=== PATIENT | male | born 1970 | race Caucasian/White ===

== ENCOUNTER 2019-08-27 05:45 | Inpatient (IN) | payer OTHER ==
[2019-08-20 12:36] LABS: BASOPHILS % (AUTO) 0.4 % (0.0-2.0); EOSINOPHILS % (AUTO) 1.4 % (1.0-6.0); HEMATOCRIT 42.3 % (41-53); HEMOGLOBIN 14.4 g/dL (13.5-17.5); LYMPHOCYTES # (AUTO) 2.5 K/uL (1.0-4.8); LYMPHOCYTES % (AUTO) 33.6 % (22.0-44.0); MEAN CORPUSCULAR HEMOGLOBIN 29.5 pg (26.0-34.0); MEAN CORPUSCULAR HGB CONC 34.1 G/dL (31.0-37.0); MEAN CORPUSCULAR VOLUME 87 fL (80-100); MONOCYTES # (AUTO) 0.5 K/uL (0.1-1.0); MONOCYTES % (AUTO) 6.4 % (2.0-9.0); NEUTROPHILS # (AUTO) 4.4 K/uL (1.8-7.7); NEUTROPHILS % (AUTO) 58.2 % (40.0-70.0); PLATELET COUNT (AUTO) 248 K/uL (150-450); RED BLOOD CELL COUNT(AUTO) 4.89 MIL/uL (4.50-5.90)
[2019-08-20 12:49] LABS: PROTHROMBIN TIME 10.3 SEC (9.4-11.6)
[2019-08-20 12:51] LABS: ANION GAP 8 mmol/L (8-16); CALCIUM, TOTAL 9.2 mg/dL (8.8-10.5); CARBON DIOXIDE 29 mmol/L (22-29); CHLORIDE 103 mmol/L (98-107); CREATININE 1.18 mg/dL (0.60-1.30); GLOMERULAR FILTR. RATE CALC > 60 mL/min (>60); GLUCOSE,RANDOM 99 mg/dL (70-110); POTASSIUM 4.6 mmol/L (3.5-5.1); SODIUM SERUM 140 mmol/L (136-145); UREA NITROGEN, BLOOD 20 mg/dL (7-18)
[2019-08-20 13:05] LABS: ALANINE AMINOTRANSFERASE 81 U/L (12-78); ALBUMIN 4.3 g/dL (3.4-5.0); ALKALINE PHOSPHATASE 82 U/L (46-116); ASPARTATE AMINOTRANSFERASE 42 U/L (15-37); BILIRUBIN,TOTAL 0.5 mg/dL (0.1-1.0); TOTAL PROTEIN, SERUM 7.9 g/dL (6.4-8.2)
[~2019-08-27] VITALS: Ht 172.7 cm; Wt 94.5 kg
[~2019-08-27 05:45] MED LIST: ATOR40TA28 PO; IBUP-2070 PO; LEVO150 PO; RINGERS SOLUTION,LACTATED 1,000 ML IV ONE; SULF500T60 PO
[2019-08-27] MEDS ORDERED: RINGERS SOLUTION,LACTATED 1,000 ML IV ONE (06:00)
[2019-08-27] MEDS ORDERED: TRANEXAMIC ACID 1,000 MG in DEXTROSE 5%-WATER 50 ML IV ONE (06:30)
[2019-08-27] MEDS ORDERED: BUPIVACAINE LIPOSOME/PF 1.3%-13.3MG/ML SUSPENSION 20 ML VIAL INJ ONE (06:30)
[2019-08-27] MEDS ORDERED: BUPIVACAINE HCL/PF 0.5% 30 ML VIAL ONE (06:36)
[2019-08-27] MEDS ORDERED: POVIDONE-IODINE 30 GM OINTMENT TP ONE (06:36)
[2019-08-27] MEDS ORDERED: SODIUM CHLORIDE 0.9% 100 ML ONE (06:37)
[2019-08-27] MEDS ORDERED: SODIUM CL IRRIG SOLN BAG 3,000 ML IRRIG ONE (06:37)
[2019-08-27] MEDS ORDERED: BACITRACIN 50,000 UNITS/VIAL ONE (06:38)
[2019-08-27] MEDS ORDERED: HYDROmorphone 2 MG/ML SYRINGE IVP PRN ×2 (06:45→08:15)
[2019-08-27] MEDS ORDERED: CYCLOBENZAPRINE HCL 10 MG TABLET PO PRN (06:45)
[2019-08-27] MEDS ORDERED: CELECOXIB 200 MG CAPSULE PO ONE (06:45)
[2019-08-27] MEDS ORDERED: ONDANSETRON HCL 4 MG/2 ML VIAL IVP PRN ×3 (06:45→21:15)
[2019-08-27] MEDS ORDERED: OxyCODONE HCL 5 MG IR TABLET PO PRN (06:45)
[2019-08-27] MEDS ORDERED: ACETAMINOPHEN 1000 MG/ISO-OSM 100 ML IV ONE (06:45)
[2019-08-27] MEDS ORDERED: ZOLPIDEM TARTRATE 5 MG TABLET PO PRN ×2 (06:45→21:15)
[2019-08-27] MEDS ORDERED: CELECOXIB 200 MG CAPSULE ONE (07:15)
[2019-08-27] MEDS: ACETAMINOPHEN 1000 MG/ISO-OSM 100 ML IV SCH ×4 (07:18→23:48)
[2019-08-27] MEDS ORDERED: FentaNYL CITRATE-PF 100 MCG/2 ML VIAL IVP PRN (08:15)
[2019-08-27] MEDS ORDERED: MEPERIDINE-PF 25 MG/ML VIAL IVP PRN (08:15)
[2019-08-27] MEDS ORDERED: DEXTROSE 5%-LACTATED RINGERS 1,000 ML IV SCH (09:36)
[2019-08-27] MEDS ORDERED: BACITRACIN 28.4 GM OINTMENT TP PRN (09:45)
[2019-08-27] MEDS ORDERED: BISACODYL 10 MG RECTAL RECTAL SUPPOSITORY PR PRN ×2 (09:45→21:15)
[2019-08-27] MEDS ORDERED: DiphenhydrAMINE HCL 50 MG/ML VIAL IVP PRN (09:45)
[2019-08-27] MEDS ORDERED: MAG HYDROX/AL HYDROX/SIMETH 30 ML SUSP UDCUP PO PRN (09:45)
[2019-08-27] MEDS ORDERED: ZOLPIDEM TARTRATE 10 MG TABLET PO PRN (09:45)
[2019-08-27] MEDS ORDERED: BENZOCAINE/MENTHOL LOZENGE PO PRN (09:45)
[2019-08-27 11:09] VITALS: BP 119/85
[2019-08-27] MEDS ORDERED: SODIUM CHLORIDE 0.9% 250 ML IV ONE (11:26)
[2019-08-27 15:42] VITALS: BP 102/62
[2019-08-27] MEDS: CeFAZolin 1 GM/DEXTROSE 50 ML IV SCH ×2 (17:26→23:48)
[2019-08-27] MEDS: OXYGEN THERAPY IH SCH (20:00)
[2019-08-27] MEDS: CELECOXIB 200 MG CAPSULE PO SCH (20:19)
[2019-08-27] MEDS: FAMOTIDINE 20 MG TABLET PO SCH (20:20)
[2019-08-27 20:29] VITALS: BP 111/57
[2019-08-27] MEDS ORDERED: DOCUSATE SODIUM 100 MG CAPSULE PO SCH (21:00)
[2019-08-27] MEDS ORDERED: ALBUTEROL SULFATE 2.5 MG/0.5 ML NEB SOLUTION NEB PRN (21:15)
[2019-08-27] MEDS ORDERED: HYDROCODONE/ACETAMINOPHEN 5-325 MG TABLET PO PRN (21:15)
[2019-08-27] MEDS ORDERED: MAGNESIUM HYDROXIDE SUSPENSION 30 ML UDCUP PO PRN (21:15)
[2019-08-27] MEDS ORDERED: MORPHINE SULFATE 2 MG/ML SYRINGE IVP PRN (21:15)
[2019-08-27] MEDS ORDERED: ACETAMINOPHEN 325 MG TABLET PO PRN (21:15)
[2019-08-27] MEDS ORDERED: IPRATROPIUM BROMIDE 0.5 MG/2.5 ML NEB SOLUTION NEB PRN (21:15)
[2019-08-28 00:44] VITALS: BP 112/64
[2019-08-28] MEDS: LEVOTHYROXINE SODIUM 150 MCG TABLET PO SCH (04:55)
[2019-08-28 04:56] VITALS: BP 120/64
[2019-08-28] MEDS ORDERED: HYDROmorphone 2 MG/ML SYRINGE IVP ONE (05:03)
[2019-08-28] MEDS ORDERED: MIDAZOLAM HCL 2 MG/2 ML VIAL IVP ONE (05:03)
[2019-08-28] MEDS ORDERED: SUCCINYLCHOLINE CHLORIDE 20 MG/ML 10 ML VIAL IVP ONE (05:03)
[2019-08-28] MEDS ORDERED: ONDANSETRON HCL 4 MG/2 ML VIAL IVP ONE (05:03)
[2019-08-28] MEDS ORDERED: 0.9% SODIUM CHLORIDE 10 ML VIAL IVP ONE (05:03)
[2019-08-28] MEDS ORDERED: FentaNYL CITRATE-PF 250 MCG/5 ML VIAL IVP ONE (05:03)
[2019-08-28] MEDS ORDERED: PROPOFOL 1% 20 ML VIAL IVP ONE (05:03)
[2019-08-28] MEDS ORDERED: ROCURONIUM BROMIDE 10 MG/ML 5 ML VIAL IVP ONE (05:03)
[2019-08-28] MEDS ORDERED: LIDOCAINE/PF 2% 5 ML VIAL IM ONE (05:03)
[2019-08-28 07:41] VITALS: BP 109/66
[2019-08-28] MEDS: OXYGEN THERAPY IH SCH ×2 (08:00→20:00)
[2019-08-28] MEDS: ATORVASTATIN CALCIUM 40 MG TABLET PO SCH (08:19)
[2019-08-28] MEDS: FAMOTIDINE 20 MG TABLET PO SCH ×2 (08:19→19:49)
[2019-08-28] MEDS: DOCUSATE SODIUM 100 MG CAPSULE PO SCH ×2 (08:19→19:48)
[2019-08-28] MEDS: CELECOXIB 200 MG CAPSULE PO SCH ×2 (08:19→19:49)
[2019-08-28] MEDS: ACETAMINOPHEN 1000 MG/ISO-OSM 100 ML IV SCH (08:22)
[2019-08-28] MEDS ORDERED: RIVAROXABAN 10 MG TABLET PO SCH (09:00)
[2019-08-28 09:31] LABS: BASOPHILS % (AUTO) 0.2 % (0.0-2.0); EOSINOPHILS % (AUTO) 0.1 % (1.0-6.0); HEMATOCRIT 33.2 % (41-53); HEMOGLOBIN 11.2 g/dL (13.5-17.5); LYMPHOCYTES # (AUTO) 1.8 K/uL (1.0-4.8); LYMPHOCYTES % (AUTO) 19.9 % (22.0-44.0); MEAN CORPUSCULAR HEMOGLOBIN 29.4 pg (26.0-34.0); MEAN CORPUSCULAR HGB CONC 33.6 G/dL (31.0-37.0); MEAN CORPUSCULAR VOLUME 88 fL (80-100); MONOCYTES # (AUTO) 0.7 K/uL (0.1-1.0); MONOCYTES % (AUTO) 7.4 % (2.0-9.0); NEUTROPHILS # (AUTO) 6.4 K/uL (1.8-7.7); NEUTROPHILS % (AUTO) 72.4 % (40.0-70.0); PLATELET COUNT (AUTO) 240 K/uL (150-450); RED CELL DISTRIBUTION WIDTH 13.5 % (11.5-14.5)
[2019-08-28 09:40] LABS: ANION GAP 10 mmol/L (8-16); CALCIUM, TOTAL 8.4 mg/dL (8.8-10.5); CARBON DIOXIDE 25 mmol/L (22-29); CHLORIDE 104 mmol/L (98-107); CREATININE 1.03 mg/dL (0.60-1.30); GLOMERULAR FILTR. RATE CALC > 60 mL/min (>60); GLUCOSE,RANDOM 139 mg/dL (70-110); POTASSIUM 4.1 mmol/L (3.5-5.1); SODIUM SERUM 139 mmol/L (136-145); UREA NITROGEN, BLOOD 19 mg/dL (7-18)
[2019-08-28 12:23] VITALS: BP 107/54
[2019-08-28] MEDS: OxyCODONE HCL/ACETAMINOPHEN 10-325 MG TABLET PO PRN (15:51)
[2019-08-28] MEDS: RIVAROXABAN 10 MG TABLET PO SCH (18:06)
[2019-08-28 19:47] VITALS: BP 122/74
[2019-08-28 22:57] VITALS: BP 105/56
[2019-08-29 05:23] VITALS: BP 122/63
[2019-08-29] MEDS: OxyCODONE HCL/ACETAMINOPHEN 10-325 MG TABLET PO PRN ×2 (05:42→20:48)
[2019-08-29] MEDS: LEVOTHYROXINE SODIUM 150 MCG TABLET PO SCH (05:42)
[2019-08-29 06:21] LABS: BASOPHILS % (AUTO) 0.2 % (0.0-2.0); EOSINOPHILS % (AUTO) 0.5 % (1.0-6.0); HEMATOCRIT 32.1 % (41-53); HEMOGLOBIN 10.8 g/dL (13.5-17.5); LYMPHOCYTES # (AUTO) 2.3 K/uL (1.0-4.8); MEAN CORPUSCULAR HEMOGLOBIN 29.8 pg (26.0-34.0); MEAN CORPUSCULAR HGB CONC 33.5 G/dL (31.0-37.0); MEAN CORPUSCULAR VOLUME 89 fL (80-100); MONOCYTES # (AUTO) 0.6 K/uL (0.1-1.0); MONOCYTES % (AUTO) 8.6 % (2.0-9.0); NEUTROPHILS # (AUTO) 3.6 K/uL (1.8-7.7); NEUTROPHILS % (AUTO) 55.7 % (40.0-70.0); PLATELET COUNT (AUTO) 230 K/uL (150-450); RED BLOOD CELL COUNT(AUTO) 3.61 MIL/uL (4.50-5.90); RED CELL DISTRIBUTION WIDTH 13.9 % (11.5-14.5)
[2019-08-29 06:26] LABS: ANION GAP 5 mmol/L (8-16); CALCIUM, TOTAL 8.1 mg/dL (8.8-10.5); CARBON DIOXIDE 30 mmol/L (22-29); CHLORIDE 105 mmol/L (98-107); CREATININE 0.91 mg/dL (0.60-1.30); GLOMERULAR FILTR. RATE CALC > 60 mL/min (>60); GLUCOSE,RANDOM 125 mg/dL (70-110); POTASSIUM 4.2 mmol/L (3.5-5.1); SODIUM SERUM 140 mmol/L (136-145); UREA NITROGEN, BLOOD 16 mg/dL (7-18)
[2019-08-29 07:35] VITALS: BP 115/59
[2019-08-29] MEDS: ATORVASTATIN CALCIUM 40 MG TABLET PO SCH (09:18)
[2019-08-29] MEDS: FAMOTIDINE 20 MG TABLET PO SCH ×2 (09:18→20:49)
[2019-08-29] MEDS: CELECOXIB 200 MG CAPSULE PO SCH ×2 (09:18→20:49)
[2019-08-29] MEDS: DOCUSATE SODIUM 100 MG CAPSULE PO SCH ×2 (09:18→20:49)
[2019-08-29 11:20] VITALS: BP 109/70
[2019-08-29 15:20] VITALS: BP 101/59
[2019-08-29] MEDS: RIVAROXABAN 10 MG TABLET PO SCH (16:45)
[2019-08-29 20:05] VITALS: BP 121/72
[2019-08-30 04:00] VITALS: BP 110/65
[2019-08-30] MEDS: LEVOTHYROXINE SODIUM 150 MCG TABLET PO SCH (05:26)
[2019-08-30 06:35] LABS: BASOPHILS % (AUTO) 0.4 % (0.0-2.0); EOSINOPHILS % (AUTO) 1.3 % (1.0-6.0); HEMATOCRIT 33.1 % (41-53); HEMOGLOBIN 11.1 g/dL (13.5-17.5); LYMPHOCYTES # (AUTO) 2.7 K/uL (1.0-4.8); LYMPHOCYTES % (AUTO) 40.4 % (22.0-44.0); MEAN CORPUSCULAR HEMOGLOBIN 29.3 pg (26.0-34.0); MEAN CORPUSCULAR HGB CONC 33.4 G/dL (31.0-37.0); MEAN CORPUSCULAR VOLUME 88 fL (80-100); MONOCYTES # (AUTO) 0.5 K/uL (0.1-1.0); NEUTROPHILS # (AUTO) 3.4 K/uL (1.8-7.7); NEUTROPHILS % (AUTO) 49.9 % (40.0-70.0); PLATELET COUNT (AUTO) 241 K/uL (150-450); RED BLOOD CELL COUNT(AUTO) 3.77 MIL/uL (4.50-5.90); RED CELL DISTRIBUTION WIDTH 13.7 % (11.5-14.5)
[2019-08-30 06:59] LABS: ANION GAP 6 mmol/L (8-16); CALCIUM, TOTAL 8.6 mg/dL (8.8-10.5); CARBON DIOXIDE 30 mmol/L (22-29); CHLORIDE 103 mmol/L (98-107); CREATININE 0.98 mg/dL (0.60-1.30); GLOMERULAR FILTR. RATE CALC > 60 mL/min (>60); GLUCOSE,RANDOM 100 mg/dL (70-110); POTASSIUM 4.2 mmol/L (3.5-5.1); SODIUM SERUM 139 mmol/L (136-145); UREA NITROGEN, BLOOD 15 mg/dL (7-18)
[2019-08-30 08:30] VITALS: BP 115/62
[2019-08-30] MEDS: ATORVASTATIN CALCIUM 40 MG TABLET PO SCH (08:35)
[2019-08-30] MEDS: FAMOTIDINE 20 MG TABLET PO SCH (08:35)
[2019-08-30] MEDS: CELECOXIB 200 MG CAPSULE PO SCH (08:35)
[2019-08-30] MEDS: DOCUSATE SODIUM 100 MG CAPSULE PO SCH (08:35)
[2019-08-30] MEDS ORDERED: RIVA10 PO (09:53)
[2019-08-30] MEDS ORDERED: PANT40TA PO (09:55)
[2019-08-30] MEDS ORDERED: PERCT PO (09:56)
[2019-08-30] MEDS ORDERED: ACET-3207 PO (09:58)
[2019-08-30 11:08] VITALS: BP 111/66
== END 2019-08-30 16:03 | disposition home health service (06) | DRG 301 ==
LOC: 4E 05:45
PROVIDERS: ADMIT Orthopaedic Surgery; ATTEND Orthopaedic Surgery
PROC: 0SRB0JZ Replacement of Left Hip Joint with Synthetic Substitute, Open Approach (ICD-10-PCS; principal; 2019-08-27 07:30)
DX: M16.12 Unilateral primary osteoarthritis, left hip (principal); E03.9 Hypothyroidism, unspecified; E78.5 Hyperlipidemia, unspecified; Z79.899 Other long term (current) drug therapy
CPT/HCPCS: 72170; 73501; 87081; 88300; 93005; 97110; 97116; 97161; 97165; 97530; 97535; C9290; G0238; G0378; J0131; J0330; J0690; J1170; J2250; J2405; J2704; J3010; J3490; J7050; J7060; J7120